=== PATIENT | female | born 1955 | race Caucasian/White ===

== ENCOUNTER 2019-10-31 12:56 | Outpatient (CLI) | payer MEDICARE, SELFPAY ==
--- NOTE | ~2019-10-31 | XR_ITS ---
XR knee LT min 4V DATE: 10/31/2019 13:26 INDICATION: Left knee pain. No injury. TECHNIQUE: Standing AP, Garcia, lateral and sunrise views COMPARISON: None FINDINGS: Enthesopathy of the patella at the quadriceps and patellar tendon insertion sites. No fracture or dislocation or joint effusion. No periosteal reaction or bone destruction. No radiopaq ue intra-articular loose body or chondrocalcinosis. Moderate loss of height of medial compartment joint space. Knee joint spaces are relatively well pres erved otherwise. IMPRESSION: Moderate loss of height of medial compartment joint space Reviewed, dictated and finalized at location A.
== END 2019-10-31 12:57 | disposition home or self-care (01) ==
DX: M25.562 Pain in left knee (principal); M25.862 Other specified joint disorders, left knee
CPT/HCPCS: 73564